=== PATIENT | male | born 1935 | race Caucasian/White ===

== ENCOUNTER 2016-04-17 14:05 | Inpatient (IN) | payer MEDICARE, MEDICAID ==
[2016-04-17] MEDS ORDERED: IPRATROPIUM/ALBUTEROL 3 ML VIAL NEB ONE (14:39)
[2016-04-17] MEDS ORDERED: ACETYLCYSTEIN 20 % 6,000 MG/30 ML VIAL NEB ONE (15:20)
[2016-04-17] MEDS ORDERED: SODIUM CHLORIDE 0.9% 1000ML 500 ML IVS ONE (16:16)
[2016-04-17] MEDS ORDERED: cefTRIAXone SODIUM 1 GM in SODIUM CHL 0.9% 50ML MIN-BAG+ 50 ML IVPB ONE (16:24)
--- NOTE | 2016-04-17 16:28 | ED.PDOC ---
History of Present Illness - General Chief Complaint: Respiratory Problem Stated Complaint: copious amounts of mucous with cough Time Seen by Provider: 04/17/16 14:39 Source: RN notes reviewed, Vital Signs reviewed, family, snf records Exam Limitations: clinical condition, physical impairment - History of Present Illness Initial Comments: the patient is a 81-year-old male presenting here to the emergency room by EMS secondary to increased coughing over the last 24 hours. The patient is a resident of a long-term care facility and his hospice nurse and caregiving nurse are both present along with family members. The patient is unable to effectively communicate due to advanced Parkinson's. Apparently the patient has had an increasing cough over the last 24 hours and increasing difficulty moving up his secretions with the cough. No definite fevers. He has had pneumonias in the past. There is some questionable history of COPD. Also a history of CHF. No other new obvious symptoms. The patient has alert and in his normal mental status which is not oriented. Review of systems is limited to what nursing and family information Provided. Timing/Duration: 24 hours Severity: moderate Improving Factors: nothing Worsening Factors: nothing Associated Symptoms: cough Allergies/Adverse Reactions: Allergies Alprazolam [From Xanax] Allergy (Mild, Verified 04/17/16 14:37) Ephedrine [From Respirol] Allergy (Mild, Verified 04/17/16 14:37) Phenobarbital [From Respirol] Allergy (Mild, Verified 04/17/16 14:37) Theophylline [From Respirol] Allergy (Mild, Verified 04/17/16 14:37) Home Medications: Ambulatory Orders Allopurinol 100 mg PO DAILY 11/01/12 Amlodipine Besylate 5 mg PO DAILY 11/01/12 B-Complex Vitamins [B-Complex] 1 cap PO DAILY 11/01/12 Calcium Carbonate [Os-Michael 500] 1,250 mg PO DAILY 11/01/12 Carvedilol 6.25 mg PO BID 11/01/12 Donepezil Hydrochloride [Donepezil HCl] 10 mg PO BEDTIME 11/01/12 Memantine [Namenda] 10 mg PO BID 11/01/12 Prednisone 5 mg PO DAILY 11/01/12 Simvastatin 40 mg PO DAILY 11/01/12 Aspirin [Aspirin Adult Low Dose] 81 mg PO DAILY 07/20/14 Docusate Sodium 100 mg PO DAILY 07/20/14 Doxazosin Mesylate 4 mg PO DAILY 07/20/14 Estazolam [Prosom] 0.5 mg PO BEDTIME PRN 07/20/14 Lorazepam 0.3 - 0.5 ml PO PRN PRN 07/20/14 Albuterol Sulfate Nebs [Proventil Nebs] 2.5 mg INH TID #50 vial 07/23/14 Cefuroxime Axetil [Ceftin] 500 mg PO BID #15 tab 07/23/14 Omeprazole [Prilosec Cap] 20 mg PO ACBK #30 cap 07/23/14 Potassium Chloride [Micro-K] 10 meq PO DAILY #30 cap 07/23/14 levoFLOXacin [Levaquin] 500 mg PO DAILY #7 tab 07/23/14 Review of Systems - Review of Systems Constitutional: States: malaise EENTM: States: nose congestion Respiratory: States: cough, short of breath Cardiology: States: no symptoms reported Gastrointestinal/Abdominal: States: no symptoms reported Genitourinary: States: no symptoms reported Musculoskeletal: States: no symptoms reported Skin: States: no symptoms reported Neurological: States: other - chronic changes and anxiety only Unable to Obtain Due To: dementia All other Systems: No Change from Baseline Past Medical History (General) - Patient Medical History Hx Seizures: No Hx Stroke: No Hx Dementia: Yes - alzheimers Hx Asthma: No Hx of COPD: No Hx Cardiac Disorders: Yes Hx Congestive Heart Failure: No Hx Pacemaker: No Hx Hypertension: Yes Hx Thyroid Disease: No Hx Diabetes: No Hx Gastroesophageal Reflux: No Hx Renal Disease: No Hx of HIV: No Hx MRSA: No - Vaccination History Hx Tetanus, Diphtheria Vaccination: No Hx Influenza Vaccination: No Hx Pneumococcal Vaccination: Yes - Social History Hx Tobacco Use: No Hx Chewing Tobacco Use: No Hx Alcohol Use: No Hx Substance Use: No Hx Substance Use Treatment: No Hx Depression: No Hx Physical Abuse: No Hx Emotional Abuse: No Hx Suspected Abuse: No - Activities of Daily Living Fdc/Assisted Living (if applicable):: [facility] Agency (if applicable):: [facility] - Female History Patient is a Female of Child Bearing Age (10 -59 yrs old): No Patient : No Family Medical History - Family History Father Living Status: Cause of : heart attack Hx Family Hypertension: Yes Hx Cardiac Disease: Yes Mother Living Status: Cause of : unk mental health issue Physical Exam - Physical Exam General Appearance: Alert, No apparent distress - until he starts coughing and is unable to move up the secretions then he shows obvious signs of respiratory distress. Eye Exam: bilateral normal Ears, Nose, Throat: hearing grossly normal - he responds by looking towards me when I talk on each side of him, nasal congestion, other - difficult to get a good view of the posterior oropharynx due to cooperation Neck: non-tender, full range of motion Respiratory: chest non-tender, no respiratory distress - until he starts coughing, rhonchi - coarse bilaterally Cardiovascular/Chest: normal peripheral pulses, no edema Peripheral Pulses: radial,right: 2+, radial,left: 2+, dorsalis pedis,right: 2+, dorsalis pedis,left: 2+ Gastrointestinal/Abdominal: soft Rectal Exam: deferred Extremity: normal range of motion - passive, normal inspection, no pedal edema, no calf tenderness, normal capillary refill Neurologic: alert, normal mood/affect - for this patient with his dementia he is anxious, other - the patient is nonambulatory at this point Skin Exam: normal color Comments: Vital Signs - 24 hr 04/17/16 04/17/16 04/17/16 14:09 14:38 14:50 Temperature 97.9 F Pulse Rate Pulse Rate [ 75 82 pulse ox] Respiratory 20 20 20 Rate Blood Pressure 165/141 113/70 [Right Arm] O2 Sat by Pulse 98 99 Oximetry 04/17/16 04/17/16 15:10 15:28 Temperature Pulse Rate 102 H Pulse Rate [ 84 pulse ox] Respiratory 24 24 Rate Blood Pressure [Right Arm] O2 Sat by Pulse 97 97 Oximetry Progress - Progress Progress: 04/17/16 16:31 the patient is a 81-year-old male with advanced dementia presenting with what is at least a significant bronchitis and possibly an early starting pneumonia. The patient does have significant dehydration which goes along with his decreased oral intake due to his dementia. he does have some acute renal failure due to this. dehydration is likely thickening the secretions and making it more difficult to cough up. The patient has had to have aggressive suctioning and pulmonary therapy due to hypoxia developing with coughing paroxysms in his attempt to move the secretions. he does have significant respiratory distress at these times. His oxygen saturations have gone down into the 50s with these. He has received a DuoNeb treatment and the Mucomyst treatment. he is doing better at this time. He is being started on Rocephin here. Blood and sputum cultures are being done. Consideration for continuous humidified oxygen supplemenation may be made as an inpatient. - Results/Orders Results/Orders: I see no evidence of new infiltrate on his chest x-ray. There is blunting of the left costophrenic angle which appears to be a long-standing thing. 04/17/16 15:03 BLOOD CULTURE Stat SPUTUM CULTURE Stat Laboratory Results - last 24 hr 04/17/16 14:39 WBC 16.7 H RBC 4.52 L Hgb 13.5 L Hct 42.2 MCV 93.3 MCH 29.8 MCHC 31.9 L RDW 16.0 H Plt Count 189 MPV 10.1 Absolute Neuts (auto) 14.20 H Absolute Lymphs (auto) 1.70 Absolute Monos (auto) 0.70 Absolute Eos (auto) 0.10 Absolute Basos (auto) 0.00 Neutrophils % 84.8 H Lymphocytes % 10.1 L Monocytes % 4.4 Eosinophils % 0.4 L Basophils % 0.3 Sodium 145 Potassium 5.7 H Chloride 111 Carbon Dioxide 26 Anion Gap 13.7 BUN 39 H Creatinine 2.15 H BUN/Creatinine Ratio 18.1 Random Glucose 185 H Serum Osmolality 302.9 H Calcium 9.4 Total Bilirubin 0.5 AST 22 ALT 24 Alkaline Phosphatase 81 Creatine Kinase 31 L CK-MB (CK-2) 2.5 CK-MB (CK-2) % Not Reportable Troponin I < 0.02 B-Natriuretic Peptide 104.0 H Serum Total Protein 7.7 Albumin 4.3 Globulin 3.4 Albumin/Globulin Ratio 1.3 Departure - Departure Clinical Impression: Bronchitis, Respiratory distress Acute kidney failure Qualifiers: Acute renal failure type: unspecified Qualifier Code: (N17.9) Acute kidney failure, unspecified Disposition: Admit Patient Home Medications: Ambulatory Orders Allopurinol 100 mg PO DAILY 11/01/12 Amlodipine Besylate 5 mg PO DAILY 11/01/12 B-Complex Vitamins [B-Complex] 1 cap PO DAILY 11/01/12 Calcium Carbonate [Os-Michael 500] 1,250 mg PO DAILY 11/01/12 Carvedilol 6.25 mg PO BID 11/01/12 Donepezil Hydrochloride [Donepezil HCl] 10 mg PO BEDTIME 11/01/12 Memantine [Namenda] 10 mg PO BID 11/01/12 Prednisone 5 mg PO DAILY 11/01/12 Simvastatin 40 mg PO DAILY 11/01/12 Aspirin [Aspirin Adult Low Dose] 81 mg PO DAILY 07/20/14 Docusate Sodium 100 mg PO DAILY 07/20/14 Doxazosin Mesylate 4 mg PO DAILY 07/20/14 Estazolam [Prosom] 0.5 mg PO BEDTIME PRN 07/20/14 Lorazepam 0.3 - 0.5 ml PO PRN PRN 07/20/14 Albuterol Sulfate Nebs [Proventil Nebs] 2.5 mg INH TID #50 vial 07/23/14 Cefuroxime Axetil [Ceftin] 500 mg PO BID #15 tab 07/23/14 Omeprazole [Prilosec Cap] 20 mg PO ACBK #30 cap 07/23/14 Potassium Chloride [Micro-K] 10 meq PO DAILY #30 cap 07/23/14 levoFLOXacin [Levaquin] 500 mg PO DAILY #7 tab 07/23/14 Decision To Admit - Decistion To Admit Decision to Admit Reason: Medical Nature Decision to Admit Date: 04/17/16 Decision to Admit Time: 16:35
[2016-04-17] MEDS ORDERED: IBUPROFEN 400 MG TAB PO PRN (16:39)
[2016-04-17] MEDS ORDERED: HYDROcodone 5MG/APAP 325MG 1 EA TAB PO PRN (16:39)
[2016-04-17] MEDS ORDERED: LEVALBUTEROL NEBS 1.25 MG/3 ML VIAL INH PRN (16:39)
[2016-04-17] MEDS ORDERED: ONDANSETRON INJ 4 MG/2 ML VIAL IV PRN (16:39)
[2016-04-17] MEDS ORDERED: SODIUM CHLORIDE 0.9% (FLUSH) 10 ML SYG IV PRN (16:39)
[2016-04-17] MEDS ORDERED: ACETAMINOPHEN 325 MG TAB PO PRN (16:39)
[2016-04-17] MEDS ORDERED: LORazepam 0.5 MG TAB PO PRN (16:56)
[2016-04-17] MEDS ORDERED: IV SET AND CAP CHANGE INJ INJ SCH (17:00)
--- NOTE | 2016-04-17 17:15 | HP ---
HISTORY OF PRESENT ILLNESS: This 81-year-old, white male is admitted to the hospital via the Emergency Room after being brought from [facility] by EMS. He has been on [facility] for the last several years because of advanced dementia with associated debility. His condition has deteriorated requiring custodial placement. He stopped walking and has been unable to speak for the last many months. No history of a CVA, but his dementia is significantly disabling. Today, before admission, he was noted to be in marked respiratory distress with some discoloration and difficulty breathing because of increased thickened sputum and respiratory secretions. He had rhonchi on both lung camejo. He was brought to the Emergency Room where emergency suctioning was required. Significant hypoxia was noted during the process with results down into the 50% range requiring oxygen supplementation and specific treatment and respiratory support. The patient was admitted to the hospital after cultures were obtained and started on antibiotic therapy to continue with pulmonary hygiene and respiratory support, p.r.n. suctioning, and nutrition support as well. The family will be in attendance with the staying with him while in the hospital. PAST MEDICAL HISTORY: 1. Progressive dementia on hospice care for the last 2 to 3 years. 2. Hypertension. 3. Elevated cholesterol. 4. History of Parkinsonism. 5. History of kidney problems. 6. Emphysema. 7. Congestive heart failure. PAST SURGICAL HISTORY: 1. Hernia surgery with still having a hernia present on his anterior abdominal wall. 2. Skin cancers from his nose. CURRENT MEDICATIONS: Please refer to nursing notes for a list of complete up to date and verified medications at [facility]. ALLERGIES: XANAX, EPHEDRINE, PHENOBARBITAL, THEOPHYLLINE PRODUCTS. FAMILY HISTORY: Positive for coronary artery disease. SOCIAL HISTORY: The patient has worked most of his life in the [employer] field. He is currently , but is in the [facility] because of his inability to walk. He stopped smoking about 27 years before. REVIEW OF SYSTEMS: Information given by and daughter who are present during the exam. GENERAL: The patient's general condition has been fairly stable. His weight has gone up slightly. No fever or chills. HEENT: He is unable to speak because of unintelligible sounds that he makes, but he is quite aggressive in trying to avoid having people "mess with him." GASTROINTESTINAL: Appetite has been fairly good with pureed diet. LUNGS: Significant cough, shortness of breath, sputum, difficulty with respiratory distress as described above. CARDIOVASCULAR: No significant palpitations or chest pains. NEUROLOGIC: No focal weakness, but he does have frequent jerking of his extremities and quite significant inability to communicate and is unable to walk because he does not fully comprehend how to walk anymore. PHYSICAL EXAMINATION: VITAL SIGNS: Afebrile. Pulse 72. Blood pressure 138/88. Pulse oximetry 93% on room air. Weight 61.7 kg. GENERAL: The patient is lying in the bed with head elevated. He is able to communicate, but does not comprehend what he says, nor can he fully comprehend questions when asked to him. He does normally smile, but he has been so ill with his respiratory distress that he is having difficulty doing that as well at this time. The family are very helpful in his ongoing care. NECK: No increased jugular venous distention. LUNGS: Some rhonchi bilaterally with some major airway secretion sounds requiring suctioning in the Emergency Room. CARDIOVASCULAR: Heart tones are fairly regular without any significant gallops. ABDOMEN: Soft, though he does not like to be palpated and bowel tones are present. EXTREMITIES: Decreased muscle tension and mass is evident, but no significant edema state. NEUROLOGIC: Significant disability with weakness, generally inability to walk, unable to talk. No focal weakness noted. No significant tremor even though he has had a diagnosis of Parkinsonism in the past. Advanced dementia with associated disability. LABORATORY: Potassium elevated at 5.7, BUN much higher than usual at 39, creatinine 2.15, glucose 185, osmolality elevated at 303, troponin 0, beta natriuretic peptide 104, albumin 4.3. White count elevated at 16,700 with 85% neutrophils, hemoglobin 13.5. Urinalysis pending. Blood cultures pending. Sputum pending after collected by suctioning. Chest x-ray results pending, but initial results do show what appears to be a left lower lobe infiltrative process with loss of the left diaphragm and some associated atelectasis as well. ASSESSMENT: 1. Acute left lower lobe pneumonia with associated respiratory distress, probable community acquired, awaiting culture after initiating treatment. 2. Significant respiratory distress with thickened respiratory secretions, no doubt contributing to some obstructive bronchial findings requiring suctioning and pulmonary hygiene. 3. Leukocytosis, probably secondary to the underlying respiratory distress with pneumonia and infection. 4. History of Parkinsonism with severe disability. 5. Advanced dementia with severe disability and dysfunction. 6. Moderate dehydration. 7. Hypoxia, requiring oxygen supplementation. 8. Renal injury with probable contribution from prerenal azotemia. 9. History of hypertension. 10. Moderate hyperkalemia. 11. History of chronic obstructive pulmonary disease. 12. History of congestive heart failure, currently stable, of undetermined etiology. PLAN: The patient is admitted for pulmonary hygiene, suctioning p.r.n., bronchodilators, antibiotic coverage with Rocephin and azithromycin. Await sputum cultures and blood cultures. Continue with some overnight IV hydration and then slowly decrease to prevent over hydration. Discussed with family. #[id number] [facility]
[2016-04-17] MEDS: IPRATROPIUM/ALBUTEROL 3 ML VIAL INH SCH ×2 (17:30→19:50)
[2016-04-17] MEDS ORDERED: cefTRIAXone SODIUM 1 GM VIAL ONE (18:28)
[2016-04-17] MEDS ORDERED: AZITHROMYCIN IV 500 MG VIAL IVPB ONE ×2 (18:29→18:36)
[2016-04-17] MEDS ORDERED: SODIUM CHLORIDE 0.9% 250ML 0 ML ONE (18:29)
[2016-04-17] MEDS ORDERED: SODIUM CHL 0.9% 50ML MIN-BAG+ 50 ML IVPB ONE (18:29)
[2016-04-17] MEDS ORDERED: SODIUM CHLORIDE 0.9% 250ML 250 ML ONE (18:36)
[2016-04-17] MEDS: AZITHROMYCIN 250 MG TAB PO SCH (18:39)
[2016-04-17] MEDS: SODIUM CHLORIDE 0.9% 1000ML 1,000 ML IVS PRN (18:42)
[2016-04-17] MEDS ORDERED: CARVEDILOL 3.125 MG TAB ONE (20:10)
[2016-04-17] MEDS ORDERED: DOXAZOSIN MESYLATE 2 MG TAB ONE (20:10)
[2016-04-17] MEDS ORDERED: DONEPEZIL HCL 5 MG TAB ONE (20:10)
[2016-04-17] MEDS ORDERED: QUEtiapine FUMARATE 25 MG TAB ONE (20:11)
[2016-04-17] MEDS: MELATONIN 3 MG TAB PO SCH (20:39)
[2016-04-17] MEDS: NON-FORMULARY MEDICATION 1 EA MIS (Quetiapine Fumarate [Seroquel] 50 MG) PO SCH (20:39)
[2016-04-17] MEDS ORDERED: DOXAZOSIN MESYLATE 4 MG PO SCH (21:00)
[2016-04-17] MEDS ORDERED: NON-FORMULARY MEDICATION 1 EA MIS (Carvedilol [Carvedilol] 6.25 MG) PO SCH (21:00)
[2016-04-17] MEDS ORDERED: NON-FORMULARY MEDICATION 1 EA MIS (Donepezil Hydrochloride [Aricept] 10 MG) PO SCH (21:00)
[2016-04-18] MEDS ORDERED: cefTRIAXone SODIUM 1 GM VIAL ONE ×2 (03:49→12:43)
[2016-04-18] MEDS ORDERED: SODIUM CHL 0.9% 50ML MIN-BAG+ 50 ML IVPB ONE ×2 (03:49→12:43)
[2016-04-18] MEDS: SODIUM CHLORIDE 0.9% 1000ML 1,000 ML IVS PRN ×3 (03:55→23:24)
[2016-04-18] MEDS: OMEPRAZOLE CAP 20 MG CAP PO SCH (06:04)
[2016-04-18] MEDS: cefTRIAXone SODIUM 1 GM in SODIUM CHL 0.9% 50ML MIN-BAG+ 50 ML IVPB SCH ×2 (06:04→18:13)
--- NOTE | 2016-04-18 07:31 | RAD ---
EXAM DESCRIPTION: XR CHEST 1 VIEW CLINICAL HISTORY: Pneumonia COMPARISON: April 17, 2016 and July 23, 2014 FINDINGS: The cardiomediastinal silhouette is unremarkable. Again seen is blunting of the left costophrenic angle suspicious for small left-sided pleural effusion with overlying atelectasis or pneumonia in the left lung base. No right-sided airspace consolidation or right pleural effusion. There is no pneumothorax or acute fracture. IMPRESSION: Small left-sided pleural effusion with overlying atelectasis or pneumonia in the left lung base, stable from yesterday. No new abnormality. Electronically signed by: Solomon Gamez DO 04/18/2016 07:29
[2016-04-18] MEDS: IPRATROPIUM/ALBUTEROL 3 ML VIAL INH SCH ×4 (08:15→21:52)
[2016-04-18] MEDS ORDERED: CARVEDILOL 3.125 MG TAB ONE (08:36)
[2016-04-18] MEDS ORDERED: NON-FORMULARY MEDICATION 1 EA MIS (Omeprazole Magnesium [Prilosec Otc] 20 MG) PO SCH (09:00)
[2016-04-18] MEDS ORDERED: DIAZEPAM TOP SCH (09:00)
[2016-04-18] MEDS ORDERED: SODIUM CHLORIDE 0.9% 10 ML VIAL IV PRN (09:22)
[2016-04-18] MEDS: predniSONE 5 MG TAB PO SCH (09:30)
[2016-04-18] MEDS: POLYETHYLENE GLYCOL 3350 17 GM PCKT PO SCH (09:30)
[2016-04-18] MEDS: ASPIRIN EC 81 MG TAB PO SCH (09:30)
[2016-04-18] MEDS: MELOXICAM 7.5 MG TAB PO SCH (09:30)
[2016-04-18] MEDS: CARVEDILOL 3.125 MG TAB PO SCH ×2 (09:30→20:34)
[2016-04-18] MEDS: ALLOPURINOL 100 MG TAB PO SCH (09:30)
[2016-04-18] MEDS: DOCUSATE SODIUM 100 MG CAP PO SCH (09:30)
[2016-04-18] MEDS: NON-FORMULARY MEDICATION 1 EA MIS (Quetiapine Fumarate [Seroquel] 50 MG) PO SCH (10:15)
[2016-04-18] MEDS: QUEtiapine FUMARATE 25 MG TAB PO SCH ×2 (10:17→20:33)
--- NOTE | 2016-04-18 10:44 | PN ---
DATE: 04/18/16 SUBJECTIVE: The patient is sitting up and in many ways is smiling and feeling much improved today. He does not tolerate the CPT and the flutter valves and has difficulty comprehending how to use the flutter valves, so these will be stopped. Appetite is fairly good and requires the and daughter to attend to his various needs. He is unable to walk for safety reasons and for his advanced disability. OBJECTIVE: VITAL SIGNS: Afebrile. Pulse 79. Blood pressure 138/88. Pulse oximetry 94% on room air. LUNGS: Much clearer today than last night, still with some scattered rales and diminished breath sounds, especially in the left base. HEART: Tones are somewhat distant. ABDOMEN: Touchy upon palpation. Bowel tones are present. EXTREMITIES: No significant edema state. Decreased muscle tension evident. NEUROLOGIC: No acute findings with significant disability with dementia and inability to communicate and walk. LABORATORY: White count down from 16,700 to 11,700 with 78% neutrophils. Hemoglobin 11.2. Potassium down from 5.7 to 4.8. BUN down from 39 to 34. Creatinine 2.15 to 1.91, which is close to baseline. Osmolality has also come down to 296 from 303. Glucose 98. Urinalysis is generally clean. Sputum and blood cultures pending. Repeat chest x-ray does reveal left lower lobe infiltrative process with associated atelectasis suggesting a pneumonia. ASSESSMENT: 1. Left lower lobe pneumonia with associated respiratory distress, probable community acquired with treatment initiated and cultures pending. 2. Leukocytosis, showing improvement. 3. Significantly elevated, thickened sputum with bronchial obstructive symptoms , showing some improvement with hydration, pulmonary hygiene,and suctioning as needed. 4. History of Parkinsonism. 5. Advanced dementia with acute exacerbation and marked disability. 6. Acute renal injury, probably secondary to prerenal azotemia. 7. Dehydration contributing to the prerenal azotemia. 8. Hypoxia, showing improvement with pulmonary hygiene. 9. History of hypertension. 10. Hyperkalemia, showing improvement. 11. History of chronic obstructive pulmonary disease. 12. History of congestive heart failure of undetermined etiology, stable at this time. PLAN: Continue current treatment program with IV antibiotics and nutritional support for at least the next one to two days and then continue with hospice care at [facility] under Dr. Baca' ongoing care. Discussed with family. #[id number] [facility]
--- NOTE | 2016-04-18 14:58 | RAD ---
Clinical History : cough , MAIN Exam : Portable AP view of the chest 04/17/2016 2:39 PM DESIGNER ARCHITECT Comparisons : Portable AP view of the chest July 23, 2014 Findings : There is patchy retrocardiac airspace disease with a small left pleural effusion. The right lung remains largely clear. The heart is normal in size. The mediastinal contours are normal in appearance. There are vascular calcifications along the aortic arch. The thoracic spine is age appropriate. The shoulders are unremarkable. Limited evaluation of the upper abdomen demonstrates no gross abnormalities. Impression: Patchy retrocardiac airspace disease with small left effusion. Electronically signed by: Guanakito Madrid MD 04/17/2016 4:30 PM DESIGNER ARCHITECT
[2016-04-18] MEDS: AZITHROMYCIN 250 MG TAB PO SCH (17:04)
[2016-04-18] MEDS: DOXAZOSIN MESYLATE 2 MG TAB PO SCH (20:33)
[2016-04-18] MEDS: MELATONIN 3 MG TAB PO SCH (20:34)
[2016-04-18] MEDS: DONEPEZIL HCL 5 MG TAB PO SCH (20:34)
[2016-04-19] MEDS ORDERED: SODIUM CHL 0.9% 50ML MIN-BAG+ 50 ML IVPB ONE ×2 (05:06→16:16)
[2016-04-19] MEDS ORDERED: cefTRIAXone SODIUM 1 GM VIAL ONE ×2 (05:06→16:16)
[2016-04-19] MEDS: cefTRIAXone SODIUM 1 GM in SODIUM CHL 0.9% 50ML MIN-BAG+ 50 ML IVPB SCH ×2 (05:41→17:28)
[2016-04-19] MEDS: OMEPRAZOLE CAP 20 MG CAP PO SCH (05:56)
[2016-04-19] MEDS: SODIUM CHLORIDE 0.9% 1000ML 1,000 ML IVS PRN ×2 (08:17→17:32)
[2016-04-19] MEDS: ASPIRIN EC 81 MG TAB PO SCH (08:34)
[2016-04-19] MEDS: ALLOPURINOL 100 MG TAB PO SCH (08:34)
[2016-04-19] MEDS: DOCUSATE SODIUM 100 MG CAP PO SCH (08:34)
[2016-04-19] MEDS: predniSONE 5 MG TAB PO SCH (08:35)
[2016-04-19] MEDS: QUEtiapine FUMARATE 25 MG TAB PO SCH ×2 (08:35→20:59)
[2016-04-19] MEDS: CARVEDILOL 3.125 MG TAB PO SCH ×2 (08:35→20:59)
[2016-04-19] MEDS: POLYETHYLENE GLYCOL 3350 17 GM PCKT PO SCH (08:35)
[2016-04-19] MEDS: MELOXICAM 7.5 MG TAB PO SCH (08:35)
[2016-04-19] MEDS: IPRATROPIUM/ALBUTEROL 3 ML VIAL INH SCH ×4 (09:35→21:48)
--- NOTE | 2016-04-19 16:13 | PN ---
DATE: 04/19/16 SUBJECTIVE: The patient is sitting up in the bed and seems to be less distressed at this time. He has almost a continuous mumbling sound as he attempts to communicate with family. The family is primarily his , who is very instrumental in assisting his eating and his ongoing care. He is now completing his second day of antibiotic coverage with one more to go and hope to be able to send home tomorrow. OBJECTIVE: LUNGS: Improved though still with diminished breath sounds. HEART: Tones regular. ABDOMEN: Soft though somewhat distended. Will try some milk of magnesia for a bowel movement before he goes home. He is unable to tell the staff when he needs to use the bedpan and he has not had a bowel movement now for several days. LABORATORY: BUN has come down from 39 to 30, creatinine from 2.15 to 1.67 with adequate hydration showing some improvement. Blood cultures are negative. Last chest x-ray did show a left lower lobe infiltrate which will have continued treatment. ASSESSMENT: 1. Left lower lobe pneumonia with associated respiratory distress, probable community acquired with treatment initiated and cultures pending. 2. Leukocytosis, showing improvement. 3. Significantly elevated, thickened sputum with bronchial obstructive symptoms , showing some improvement with hydration, pulmonary hygiene,and suctioning as needed. 4. History of Parkinsonism. 5. Advanced dementia with acute exacerbation and marked disability. 6. Acute renal injury, probably secondary to prerenal azotemia. 7. Dehydration contributing to the prerenal azotemia. 8. Hypoxia, showing improvement with pulmonary hygiene. 9. History of hypertension. 10. Hyperkalemia, showing improvement. 11. History of chronic obstructive pulmonary disease. 12. History of congestive heart failure of undetermined etiology, stable at this time. PLAN: Will continue with antibiotic coverage this evening to complete a 3 day course of parenteral therapy. Then consider reevaluation in the morning and continue with hospice care at [facility] if stable. The will also assist with ongoing care which is of great assistance with this patient who is severely disabled. #[id number] [facility]
[2016-04-19] MEDS: AZITHROMYCIN 250 MG TAB PO SCH (17:28)
[2016-04-19] MEDS: MELATONIN 3 MG TAB PO SCH (20:59)
[2016-04-19] MEDS: DOXAZOSIN MESYLATE 2 MG TAB PO SCH (21:00)
[2016-04-19] MEDS: DONEPEZIL HCL 5 MG TAB PO SCH (21:00)
[2016-04-20] MEDS: SODIUM CHLORIDE 0.9% 1000ML 1,000 ML IVS PRN (02:51)
[2016-04-20] MEDS ORDERED: cefTRIAXone SODIUM 1 GM VIAL ONE (05:06)
[2016-04-20] MEDS ORDERED: SODIUM CHL 0.9% 50ML MIN-BAG+ 50 ML IVPB ONE (05:06)
[2016-04-20] MEDS: cefTRIAXone SODIUM 1 GM in SODIUM CHL 0.9% 50ML MIN-BAG+ 50 ML IVPB SCH (05:57)
[2016-04-20] MEDS: OMEPRAZOLE CAP 20 MG CAP PO SCH (05:58)
[2016-04-20] MEDS: IPRATROPIUM/ALBUTEROL 3 ML VIAL INH SCH ×2 (08:31→13:41)
[2016-04-20] MEDS: ASPIRIN EC 81 MG TAB PO SCH (08:41)
[2016-04-20] MEDS: CARVEDILOL 3.125 MG TAB PO SCH (08:41)
[2016-04-20] MEDS: ALLOPURINOL 100 MG TAB PO SCH (08:41)
[2016-04-20] MEDS: QUEtiapine FUMARATE 25 MG TAB PO SCH (08:41)
[2016-04-20] MEDS: predniSONE 5 MG TAB PO SCH (08:41)
[2016-04-20] MEDS: DOCUSATE SODIUM 100 MG CAP PO SCH (08:41)
[2016-04-20] MEDS: POLYETHYLENE GLYCOL 3350 17 GM PCKT PO SCH (08:42)
[2016-04-20] MEDS: MELOXICAM 7.5 MG TAB PO SCH (08:42)
[2016-04-20 11:05] VITALS: BP 155/60; TEMP 98; O2SAT 96
--- NOTE | 2016-05-04 09:20 | DS ---
SUPERVISING PHYSICIAN: Lorenzo Traylor MD DISCHARGE DIAGNOSIS: 1. Left lower lobe pneumonia with associated respiratory distress, probable community acquired with treatment initiated and cultures pending. 2. Leukocytosis, showing improvement. 3. Significantly elevated, thickened sputum with bronchial obstructive symptoms , showing some improvement with hydration, pulmonary hygiene,and suctioning as needed. 4. History of Parkinsonism. 5. Advanced dementia with acute exacerbation and marked disability. 6. Acute renal injury, probably secondary to prerenal azotemia. 7. Dehydration contributing to the prerenal azotemia. 8. Hypoxia, showing improvement with pulmonary hygiene. 9. History of hypertension. 10. Hyperkalemia, showing improvement. 11. History of chronic obstructive pulmonary disease. 12. History of congestive heart failure of undetermined etiology, stable at this time. HISTORY OF PRESENT ILLNESS: This is a 81-year-old, white male who is admitted to the hospital via the Emergency Room after being brought from [facility] by EMS. He has been on [facility] for the last several years because of advanced dementia with associated debilitation. His condition has deteriorated requiring [facility] placement. He has been unable to walk or speak for the last few months. 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 He was brought to the Emergency Room where emergency suctioning was required. Significant hypoxia was noted during the process with results down into the 50% range requiring oxygen supplementation and specific treatment with respiratory support. The patient was admitted to the hospital after cultures were obtained and started on antibiotic therapy that included Rocephin and azithromycin as well as adding breathing treatments and gentle IV rehydration. HOSPITAL COURSE: After admission, he was continued with the Rocephin and azithromycin. His breathing treatments were continued. Preliminary blood cultures showed no growth and his initial WBCs were 16.7, but on the day prior to discharge, they had normalized to 7.9 with normal neutrophils. He does have some renal insufficiency and his initial creatinine was 2.15 and on the day prior to discharge, it was 1.67. He also had an elevated potassium on admission at 5.7 and is now 4.8. Aggressive pulmonary toilet was continued. His oxygen saturations improved to 93% to 96% on room air. At this point, I believe he is able to return to [facility] after discharge. DISCHARGE PLAN: The patient will be discharged in stable condition to [facility]. He will continue with his [facility]. I have given him Cefdinir twice a day for seven days as well as two additional doses of azithromycin. I have also continued his Mucinex twice a day. He is to resume his previous diabetic diet and increase his activity as tolerated. He is to have a followup appointment with Dr. Baca in the next one to two weeks. Otherwise, he is to return to the hospital for any further problems or complications. DISCHARGE MEDICATIONS: 1. Carvedilol. 2. Allopurinol. 3. Docusate sodium. 4. Aspirin. 5. Lorazepam. 6. Melatonin. 7. Doxazosin. 8. Loratadine. 9. Aricept. 10. Prednisone. 11. Prilosec. 12. Lactulose. 13. Diazepam. 14. Seroquel. 15. Meloxicam. 16. Acetaminophen. 17. Zyrtec. 18. Polyethylene glycol. 19. Azithromycin. 20. Cefdinir. 21. Guaifenesin. 22. DuoNeb. 23. Xopenex. Dr. Traylor is the collaborating physician and available for consultation. #[id number] [facility]
== END 2016-04-20 02:25 | DRG 682 ==
LOC: ER 14:05 → MS 17:14
PROVIDERS: ADMIT Emergency Medicine; ATTEND Nurse Practitioner Acute Care
DX: N17.9 Acute kidney failure, unspecified (principal); J18.9 Pneumonia, unspecified organism; J44.0 Chronic obstructive pulmonary disease with (acute) lower respiratory infection; G20 Parkinson's disease; F02.80 Dementia in other diseases classified elsewhere, unspecified severity, without behavioral disturbance, psychotic disturbance, mood disturbance, and anxiety; E86.0 Dehydration; R09.02 Hypoxemia; I11.0 Hypertensive heart disease with heart failure; I50.9 Heart failure, unspecified; E87.5 Hyperkalemia; E78.00 Pure hypercholesterolemia, unspecified; Z88.8 Allergy status to other drugs, medicaments and biological substances; Z87.891 Personal history of nicotine dependence; Z79.52 Long term (current) use of systemic steroids; Z79.82 Long term (current) use of aspirin; Z79.899 Other long term (current) drug therapy; Z66 Do not resuscitate